=== PATIENT | female | born 1975 | race Caucasian/White ===

== ENCOUNTER 2016-12-02 16:35 | Emergency (ER) | payer MEDICARE, OTHER ==
[~2016-12-02] VITALS: Ht 160 cm; Wt 46.7 kg
[~2016-12-02 16:35] MED LIST: ATIVAN1 MG PO; BUSPIRONE HCL15 MG PO; CELEXA20 MG PO; CELEXA40 MG PO; CIPRO500 MG PO; DILAUDID2 MG PO; FLOMAX0.4 MG; FLOMAX0.4 MG PO; METRONIDAZOLE500 MG PO; NORCO 5-325 TA1 EACH PO; NORCO 7.5-3251 EACH PO; PHENAZOPYRIDIN100 MG; POTASSIUM CHLO10 MEQ PO; PROVENTIL HFA6.7 GM INH; PYRIDIUM200 MG PO; XANAX1 MG PO; ZITHROMAX250 MG PO; ZOFRAN ODT4 MG PO; ZOFRAN ODT4 MG SL
[2016-12-02] MEDS ORDERED: LEXAPRO10 MG PO (16:47)
[2016-12-03] MEDS ORDERED: NORCO 5-325 TA1 EACH PO (00:12)
== END 2016-12-03 00:47 | disposition home or self-care (01) ==
LOC: ED 16:35
DX: N13.1 Hydronephrosis with ureteral stricture, not elsewhere classified (principal); D64.9 Anemia, unspecified; F32.9 Major depressive disorder, single episode, unspecified; F41.9 Anxiety disorder, unspecified; Z91.040 Latex allergy status; Z79.899 Other long term (current) drug therapy
CPT/HCPCS: 74176; 74177; 80053; 81001; 84703; 85025; 87077; 87088; 87186; 96374; 96375; 96376; 99284; J1885; J2405; Q9967

== ENCOUNTER 2017-04-21 08:20 | Emergency (ER) | payer MEDICARE, OTHER ==
[~2017-04-21] VITALS: Ht 160 cm; Wt 46.7 kg
[~2017-04-21 08:20] MED LIST changes: +LEXAPRO10 MG PO
[2017-04-21] MEDS ORDERED: ATIVAN1 MG PO (08:35)
[2017-04-21] MEDS ORDERED: AMOXICILLIN500 MG PO (08:40)
== END 2017-04-21 09:46 | disposition home or self-care (01) ==
LOC: ED 08:20
DX: K04.7 Periapical abscess without sinus (principal); K03.81 Cracked tooth; F32.9 Major depressive disorder, single episode, unspecified; F41.9 Anxiety disorder, unspecified; D64.9 Anemia, unspecified; Z91.040 Latex allergy status; Z79.899 Other long term (current) drug therapy
CPT/HCPCS: 99283